=== PATIENT | male | born 1965 | race Asian ===

== ENCOUNTER 2018-06-26 16:57 | Emergency (ER) | payer OTHER ==
[~2018-06-26] VITALS: Ht 162.6 cm; Wt 71.0 kg
[2018-06-26 17:44] LABS: BASOPHILS # (AUTO) 0.04 x10^3/uL (0-0.1); BASOPHILS % (AUTO) 1 % (0-1); EOSINOPHILS # (AUTO) 0.06 x10^3/uL (0-0.4); EOSINOPHILS % (AUTO) 1 % (1-7); LYMPHOCYTES # (AUTO) 2.61 x10^3/uL (1-3.4); LYMPHOCYTES % (AUTO) 34 % (22-44); MD NO; MEAN CORPUSCULAR HEMOGLOBIN 28.5 pg (27.5-34.5); MEAN CORPUSCULAR HGB CONC 33.5 g/dL (33.2-36.2); MEAN CORPUSCULAR VOLUME 85.2 fL (81-97); MEAN PLATELET VOLUME 7.9 fL (7.4-10.4); MONOCYTES # (AUTO) 0.37 x10^3/uL (0.2-0.8); MONOCYTES % (AUTO) 5 % (2-9); NEUTROPHILS # (AUTO) 4.51 x10^3/uL (1.8-6.8); NEUTROPHILS % (AUTO) 60 % (42-75); PLATELET COUNT 211 x10^3/uL (130-400); RED BLOOD COUNT 6.14 x10^6/uL (4.38-5.82); RED CELL DISTRIBUTION WIDTH 14.4 % (9.4-14.8)
[2018-06-26 17:54] LABS: ALANINE AMINOTRANSFERASE 44 U/L (12-78); ALBUMIN 4.2 g/dL (3.4-5.0); ANION GAP 9 mmol/L (5-15); CHLORIDE 106 mmol/L (98-107)
[2018-06-26 17:59] LABS: ALKALINE PHOSPHATASE 76 U/L (45-117); BILIRUBIN,TOTAL 0.5 mg/dL (0.2-1.0); CREATININE 1.08 mg/dL (0.7-1.3); FREE T4 (FREE THYROXINE) 0.98 ng/dL (0.76-1.46); TROPONIN I < 0.015 ng/mL (0.000-0.045)
[2018-06-26 19:45] VITALS: BP 124/81
== END 2018-06-26 19:47 | disposition home or self-care (01) ==
LOC: ED 19:10
DX: R00.2 Palpitations (principal)
CPT/HCPCS: 36415; 71046; 80053; 84439; 84443; 84484; 85025; 93005; 99285

== ENCOUNTER → 2018-07-08 | Outpatient (CLI) | payer OTHER | END | disposition home or self-care (01) | LOC: CVU 09:20 | PROVIDERS: ATTEND Family Medicine | DX: R00.2 Palpitations (principal); I10 Essential (primary) hypertension | CPT/HCPCS: 93225; 93226; 93306 ==